=== PATIENT | male | born 1995 | race Caucasian/White ===

== ENCOUNTER 2017-02-19 18:53 | Emergency (ER) | payer OTHER ==
[2017-02-19 18:56] VITALS: BP 127/68; PULSE 79; TEMP 98; BMI 27.4
--- NOTE | 2017-02-19 19:40 | PDOC ---
History of Present Illness - History of Present Illness Initial Comments: 02/19/17 19:48 The patient is a 21 year old female, with a significant past medical history of anxiety, who presents to the emergency department with intermittent chest pain for 6 months with increased frequency for the past 3 days. The patient states his pain has been intermittent for the past six months, however, reports the pain has been constant since Friday. The patient describes his pain as tightness to the middle of his chest. He states it feels more like discomfort which he rates 7/10 at its worst and 5/10 at its best. 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 The patient states his pain is exacerbated with movement before bed and denies alleviating factors. He denies taking medication for pain. The patient denies pain on inspiration or with increased physical activity. Secondarily, the patient reports starting drinking one beer a day in September of 2016. He also reports starting to smoke marijuana about 3 months ago. He denies shortness of breath, headache and dizziness. He denies fever, chills, nausea, vomit, diarrhea and constipation. He denies dysuria, frequency, urgency and hematuria. Allergies: NKDA Family History: Anxiety (father) <Gris Lim - Last Filed: 02/19/17 19:48> - General History Source: Patient Exam Limitations: No Limitations <Aidee Jones - Last Filed: 02/19/17 21:25> - General Chief Complaint: Chest Pain Stated Complaint: CHEST PAIN Time Seen by Provider: 02/19/17 19:32 Past History <Gris Lim - Last Filed: 02/19/17 19:48> - Psycho/Social/Smoking Cessation Hx Anxiety: No Suicidal Ideation: No Smoking History: Never smoked Information on smoking cessation initiated: No Hx Alcohol Use: No Substance Use Type: None <Aidee Jones - Last Filed: 02/19/17 21:25> - Past Medical History Allergies/Adverse Reactions: Allergies Allergy/AdvReac Type Severity Reaction Status Date / Time No Known Allergies Allergy Verified 02/19/17 18:56 Home Medications: Ambulatory Orders No Home Medications 0 dose .ROUTE UTDICT 11/24/13 Review of Systems - Review of Systems Able to Perform ROS?: Yes Comments:: 02/19/17 19:48 CONSTITUTIONAL: Absent: fever, no chills, no fatigue EYES: Absent: visual changes ENT: Absent: ear pain, no sore throat CARDIOVASCULAR: (+) chest pain, Absent: no palpitations RESPIRATORY: Absent: cough, no SOB GASTROINTESTINAL: Absent: abdominal pain, no nausea, no vomiting, no constipation, no diarrhea GENITOURINARY: Absent: dysuria, no frequency, no hematuria MUSCULOSKELETAL: Absent: back pain, no arthralgia, no myalgia SKIN: Absent: rash NEURO: Absent: headache <Gris Lim - Last Filed: 02/19/17 19:48> *Physical Exam - Vital Signs Last Vital Signs Temp Pulse Resp BP Pulse Ox 98 F 79 18 127/68 99 02/19/17 18:53 02/19/17 18:53 02/19/17 18:53 02/19/17 18:53 02/19/17 18:53 - Physical Exam Comments: 02/19/17 19:49 GENERAL: The patient is in no acute distress. HEAD: Normal with no signs of trauma. EYES: PERRLA, EOMI, sclera anicteric, conjunctiva clear. ENT: Ears normal, nares patent, oropharynx clear without exudates. Moist mucous membranes. NECK: Normal range of motion, supple without lymphadenopathy, JVD, or masses. LUNGS: Breath sounds equal, clear to auscultation bilaterally. No wheezes, and no crackles. HEART:Regular rate and rhythm, normal S1 and S2 without murmur, rub or gallop. ABDOMEN: Soft, nontender, normoactive bowel sounds. No guarding, no rebound. No masses palpable. EXTREMITIES: Normal range of motion, no edema. No clubbing or cyanosis. No erythema, or tenderness. NEUROLOGICAL: Cranial nerves II through XII grossly intact. Normal speech. No focal neurological deficits. MUSCULOSKELETAL: Back non-tender to palpation, no CVA tenderness SKIN: Warm, Dry, normal turgor, no rashes or lesions noted. <Gris Lim - Last Filed: 02/19/17 19:48> - Vital Signs Last Vital Signs Temp Pulse Resp BP Pulse Ox 98 F 79 18 127/68 99 02/19/17 18:53 02/19/17 18:53 02/19/17 18:53 02/19/17 18:53 02/19/17 18:53 <Aidee Jones - Last Filed: 02/19/17 21:25> Heart Score/ECG Review #1 ECG reviewed & interpreted by me at: 21:12 02/19/17 21:12 Twelve-lead EKG was performed and reviewed by me. There is normal sinus rhythm with a normal rate of 73 bpm. The axis is normal. The intervals are - pr: 110ms , QRS:86ms, QTc:401ms. There are no ST elevations or depressions. T waves upright <RobertAidee - Last Filed: 02/19/17 21:25> ED Treatment Course - LABORATORY CBC & Chemistry Diagram: 02/19/17 20:20 02/19/17 20:20 <RobertBrianAidee - Last Filed: 02/19/17 21:25> Medical Decision Making - Medical Decision Making 02/19/17 19:40 A portion of this note was documented by scribe services under my direction. I have reviewed the details of the note, within reason, and agree with the documentation with the following case summary and management plan written by me. Nursing documentation reviewed and incorporated into medical decision making 02/19/17 19:50 This patient is a 21-year-old male with no significant past medical history who presents emergency department with a complaint of chest tightness. Patient states he's had these symptoms for approximately 6 months however her symptoms have become more consistent in the past 3 days. Chest pain is described as tightness, intermittently sharp. Pain is been constant but waxing and waning over the past 3 days. He's had no associated upper respiratory infections, fevers, chills, cough. No exertional symptoms. No recent immobilization. Prior to 6 months ago this patient had no symptoms like this. Patient works at [employer] No nausea or diaphoresis Pt has not tried taking motrin or tylenol for pain No family history of early heart disease or sudden No tobacco use (+) Marijuanna use (+) Alcohol dialy Differential includes: pneumothorax, pleural effusion, costochondritis, pericarditis, GERD, precordial catch. Unlikely PE given Low risk wells, PERC negative Will do: Basic labs CXR Motrin for pain 02/19/17 20:29 Selected Entries 02/19/17 18:53 Temperature 98 F Pulse Rate 79 Respiratory 18 Rate Blood Pressure 127/68 O2 Sat by Pulse 99 Oximetry (%) Laboratory Tests 02/19/17 20:20 WBC 5.8 Hgb 14.4 Hct 42.4 Plt Count 190 02/19/17 21:04 Laboratory Tests 02/19/17 20:20 Sodium 141 Potassium 3.8 Chloride 104 Carbon Dioxide 28 BUN 20 H Creatinine 1.1 Random Glucose 90 Creatine Kinase 130 Troponin I < 0.02 02/19/17 21:09 CXR: nml Will plan to discharge to home Follow up with PMD 02/19/17 21:11 02/19/17 21:17 <Aidee Jones - Last Filed: 02/19/17 21:25> *DC/Admit/Observation/Transfer - Attestations Scribe Attestion: 02/19/17 19:49 Documentation prepared by Gris Lim, acting as medical office supervisor for Aidee Jones MD <Gris Lim - Last Filed: 02/19/17 19:48> - Discharge Dispostion Admit: No <Aidee Jones - Last Filed: 02/19/17 21:25> Diagnosis at time of Disposition: Chest pain Qualifiers: Chest pain type: unspecified Qualified Code(s): R07.9 - Chest pain, unspecified - Discharge Dispostion Disposition: HOME Condition at time of disposition: Stable - Referrals Referrals: Blanka Longo MD [Staff Physician] - Jennifer Marte MD [Staff Physician] - Marline Herbert MD [Staff Physician] - Adama Etienne MD [Staff Physician] - - Patient Instructions Printed Discharge Instructions: DI for Atypical Chest Pain Additional Instructions: Mr. Alejandro Thanks for coming in to the ER today Your labs and x rays are normal You must follow up with your primary care physician You must return to the ER for any other concerns or complaints You may take motrin for pain - Post Discharge Activity Work/School Note: Back to Work
[2017-02-19] MEDS ORDERED: IBUPROFEN 600 MG TABLET (FP) PO ONE ×2 (19:41→19:51)
[2017-02-19 20:26] LABS: BASOPHIL 0.4 % (0-2.0); EOSINOPHIL 1.1 % (0-4.5); MCH 32.1 pg (25.7-33.7); MCHC 33.9 g/dl (32.0-35.9); MEAN CELL VOLUME 94.5 fl (80-96); MEAN PLT VOLUME 8.7 fl (7.5-11.1); NEUTROPHILS 57.2 % (42.8-82.8); PLATELET COUNT 190 K/MM3 (134-434); RDW 13.3 % (11.9-15.9); WHITE BLOOD COUNT 5.8 K/mm3 (4.0-10.0)
[2017-02-19 20:52] LABS: ALBUMIN 3.9 g/dl (3.4-5.0); ANION GAP 9 (8-16); BILIRUBIN,TOTAL 0.3 mg/dL (0.2-1.0); CO2 28 mmol/L (21-32); CREATININE 1.1 mg/dL (0.7-1.3); GLUCOSE,RANDOM 90 mg/dL (74-106); SGOT/AST 12 U/L (15-37); SGPT/ALT 26 U/L (12-78); TOT PROT 7.6 g/dl (6.4-8.2)
[2017-02-19 20:54] LABS: ALK PHOS 91 U/L (45-117); CPK 130 IU/L (39-308); TROPONIN I < 0.02 ng/ml (0.00-0.05)
--- NOTE | 2017-02-20 14:11 | EKG ---
Test Reason : Blood Pressure : / mmHG Vent. Rate : 073 BPM Atrial Rate : 073 BPM P-R Int : 110 ms QRS Dur : 086 ms QT Int : 364 ms P-R-T Axes : 003 065 033 degrees QTc Int : 401 ms SINUS RHYTHM WITH SHORT MN OTHERWISE NORMAL ECG NO PREVIOUS ECGS AVAILABLE Confirmed by KADY BOWERS MD ([id number]) on 02/20/2017 2:11:33 PM Referred By: Confirmed By:KADY BOWERS MD
== END 2017-02-19 21:36 | disposition home or self-care (01) ==
LOC: JER 18:53
DX: R07.9 Chest pain, unspecified (principal); F41.9 Anxiety disorder, unspecified
CPT/HCPCS: 36415; 71020-TC; 80053; 84484; 85025; 93005; 93010; 99282-25

== ENCOUNTER 2017-07-01 18:39 | Emergency (ER) | payer OTHER ==
--- NOTE | 2017-07-01 19:49 | PDOC ---
Rapid Medical Evaluation Time Seen by Provider: 07/01/17 19:44 Medical Evaluation: Allergies Allergy/AdvReac Type Severity Reaction Status Date / Time No Known Allergies Allergy Verified 02/19/17 18:56 07/01/17 19:46 I have performed a brief in-person evaluation of this patient. The patient presents with a chief complaint of palpitations, numbness in fingers and dry mouth after eating brownie and cereal with marijuana. States he vomited and felt better afterwards. Now still feeling lightheaded. Denies suicidal ideation Pertinent physical exam findings: appears anxious lungs clear bilaterally non tender chest moist skin neuro: a+o x 3, EOMI, follows command I have ordered the following: ekg The patient will proceed to the Ed for further evaluation.
[2017-07-01 19:50] VITALS: BP 133/50; PULSE 111; TEMP 98.1; BMI 28.0
== END 2017-07-02 01:23 | disposition left against medical advice (07) ==
LOC: JER 18:39
DX: Z53.21 Procedure and treatment not carried out due to patient leaving prior to being seen by health care provider (principal)
CPT/HCPCS: 99281-25